=== PATIENT | male | born 1980 | race Hispanic/Latino ===

== ENCOUNTER 2017-12-19 22:35 | Emergency (ER) | payer BC ==
[2017-12-19] MEDS ORDERED: ASPIRIN 325 MG TABLET ONE (22:49)
[2017-12-19 22:59] LABS: BASOPHILS % (AUTO) 0.5 % (0.0-5.0); EOSINOPHILS % (AUTO) 1.2 % (0.0-8.0); HEMATOCRIT 46.3 % (42-54); LYMPHOCYTES % (AUTO) 15.6 % (21.0-51.0); MEAN CORPUSCULAR HEMOGLOBIN 31.1 pg (27.0-33.0); MEAN CORPUSCULAR HGB CONC 35.1 g/dL (32.0-36.0); MEAN CORPUSCULAR VOLUME 88.5 fL (79-99); MONOCYTES % (AUTO) 7.1 % (3.0-13.0); NEUTROPHILS % (AUTO) 75.6 % (40.0-77.0); PLATELET COUNT (AUTO) 230 K/uL (130-400); RED BLOOD CELL COUNT(AUTO) 5.24 MIL/uL (4.50-6.20); RED CELL DISTRIBUTION WIDTH 12.2 % (11.0-15.5)
[2017-12-19 23:21] LABS: CREATININE 1.1 mg/dL (0.5-1.5); POTASSIUM 3.5 mmol/L (3.5-5.1)
[2017-12-19 23:22] LABS: INR 0.98 (0.85-1.15); PARTIAL THROMBOPLASTIN TIME 26.8 SEC (26.3-35.5); PROTHROMBIN TIME 10.3 SEC (9.6-11.6)
[2017-12-19] MEDS ORDERED: SODIUM CHLORIDE 0.9% 1000ML 1,000 ML IV ONE (23:33)
[2017-12-19 23:34] LABS: BILIRUBIN,TOTAL 0.3 mg/dL (0.2-1.0); TOTAL PROTEIN, SERUM 8.1 g/dL (6.0-8.3)
[2017-12-19] MEDS ORDERED: FAMOTIDINE/PF 20 MG/2 ML VIAL IV ONE (23:34)
[2017-12-19] MEDS ORDERED: ACETAMINOPHEN 325 MG TAB ONE (23:34)
[2017-12-19] MEDS ORDERED: NITROGLYCERIN 1GM/1 INCH PACKET TD ONE (23:34)
[2017-12-19 23:40] LABS: APPEARANCE,URINE Clear (CLEAR); BILIRUBIN,URINE Negative (NEGATIVE); COLOR,URINE Yellow (YELLOW); GLUCOSE, URINE (UA) Negative (NEGATIVE); KETONES,URINE Negative (NEGATIVE); LEUKOCYTE ESTERASE ,URINE Negative (NEGATIVE); NITRATE,URINE Negative (NEGATIVE); OCCULT BLOOD,URINE Negative (NEGATIVE); PROTEIN,URINE Negative (NEGATIVE); UROBILINOGEN,URINE 0.2 mg/dL (0.2-1.0)
[2017-12-20 00:05] LABS: AMPHET/METH SCREEN,URINE NEGATIVE (NEGATIVE); BARBITURATE SCREEN, URINE NEGATIVE (NEGATIVE); BENZODIAZEPINES SCREEN,URINE NEGATIVE (NEGATIVE); CANNABINOID SCREEN,URINE NEGATIVE (NEGATIVE); COCAINE SCREEN,URINE NEGATIVE (NEGATIVE); OPIATE SCREEN,URINE NEGATIVE (NEGATIVE); PHENCYCLIDINE SCREEN,URINE NEGATIVE (NEGATIVE)
[2017-12-20] MEDS ORDERED: LABETALOL HCL 5 MG/ML 20ML VIAL IV ONE (00:22)
[2017-12-20] MEDS ORDERED: SUCRALFATE 1 GM TABLET ONE (00:50)
[2017-12-20] MEDS ORDERED: MAG HYDROX/AL HYDROX/SIMETH ES 30 ML SUSP UDCUP ONE (02:09)
[2017-12-20] MEDS ORDERED: LIDOCAINE HCL 2% VISCOUS 15 ML UDCUP ONE (02:09)
== END 2017-12-20 05:16 | disposition home or self-care (01) ==
LOC: EDH 22:35
DX: K29.70 Gastritis, unspecified, without bleeding (principal); R00.2 Palpitations; T44.995A Adverse effect of other drug primarily affecting the autonomic nervous system, initial encounter; R07.89 Other chest pain; Z72.0 Tobacco use; Y92.89 Other specified places as the place of occurrence of the external cause
CPT/HCPCS: 36415; 71045; 80053; 80305; 81003; 82550; 82553; 83874; 84484 ×2; 85025; 85610; 85730; 93005 ×2; 94761; 96361; 96374; 96375; 99285; J3490 ×2; J7030

== ENCOUNTER 2018-04-22 01:09 | Emergency (ER) | payer BC ==
[2018-04-22 01:28] LABS: BASOPHILS % (AUTO) 0.5 % (0.0-5.0); EOSINOPHILS % (AUTO) 3.1 % (0.0-8.0); HEMATOCRIT 45.2 % (42-54); LYMPHOCYTES % (AUTO) 28.1 % (21.0-51.0); MEAN CORPUSCULAR HEMOGLOBIN 30.8 pg (27.0-33.0); MONOCYTES % (AUTO) 6.8 % (3.0-13.0); NEUTROPHILS % (AUTO) 61.5 % (40.0-77.0); NUCLEATED RED BLOOD CELLS 0.1 % (0.0-0.19); PLATELET COUNT (AUTO) 212 K/uL (130-400); RED BLOOD CELL COUNT(AUTO) 5.13 MIL/uL (4.50-6.20); RED CELL DISTRIBUTION WIDTH 12.6 % (11.0-15.5); WHITE BLOOD COUNT (AUTO) 8.8 K/uL (4.8-10.8)
[2018-04-22 01:35] LABS: POTASSIUM 3.6 mmol/L (3.5-5.1)
[2018-04-22] MEDS ORDERED: LIDOCAINE HCL 2% VISCOUS 15 ML UDCUP ONE (01:38)
[2018-04-22] MEDS ORDERED: MAGNESIUM HYDROXIDE 30 ML/UDCUP ONE (01:39)
[2018-04-22] MEDS ORDERED: ASPIRIN 325 MG TABLET ONE (01:39)
[2018-04-22 01:41] LABS: ALBUMIN 3.8 g/dL (3.5-5.0); BILIRUBIN,TOTAL 0.3 mg/dL (0.2-1.0); TOTAL PROTEIN, SERUM 7.7 g/dL (6.0-8.3)
[2018-04-22 01:50] LABS: AMPHET/METH SCREEN,URINE NEGATIVE (NEGATIVE); BARBITURATE SCREEN, URINE NEGATIVE (NEGATIVE); BENZODIAZEPINES SCREEN,URINE NEGATIVE (NEGATIVE); CANNABINOID SCREEN,URINE NEGATIVE (NEGATIVE); COCAINE SCREEN,URINE NEGATIVE (NEGATIVE); OPIATE SCREEN,URINE NEGATIVE (NEGATIVE); PHENCYCLIDINE SCREEN,URINE NEGATIVE (NEGATIVE)
[2018-04-22 02:08] LABS: B-TYPE NATRIURETIC PEPTIDE 18 pg/mL (0-100)
== END 2018-04-22 02:54 | disposition home or self-care (01) ==
LOC: EDH 01:09
DX: R07.89 Other chest pain (principal); R11.0 Nausea
CPT/HCPCS: 36415; 71045; 80053; 80305; 82550; 83880; 84484; 85025; 93005; 94761

== ENCOUNTER 2023-03-01 20:49 | Emergency (ER) | payer BC, OTHER ==
[~2023-03-01] VITALS: Ht 160 cm; Wt 82.1 kg
[2023-03-01] MEDS ORDERED: KETOROLAC 30MG VIAL (30MG/ML) IVP ONE (22:00)
[2023-03-01] MEDS ORDERED: ORPHENADRINE CITRATE 30 MG/ML ML IVP ONE (22:00)
[2023-03-01 22:14] LABS: BASOPHILS % (AUTO) 0.9 % (0.0-5.0); EOSINOPHILS % (AUTO) 3.6 % (0.0-8.0); HEMATOCRIT 47.1 % (42-54); MEAN CORPUSCULAR HEMOGLOBIN 29.7 pg (27.0-33.0); MEAN CORPUSCULAR HGB CONC 34.8 g/dL (32.0-36.0); MEAN CORPUSCULAR VOLUME 85.2 fL (79-99); MONOCYTES % (AUTO) 6.8 % (3.0-13.0); NEUTROPHILS % (AUTO) 58.3 % (40.0-77.0); PLATELET COUNT (AUTO) 257 K/uL (130-400); RED BLOOD CELL COUNT(AUTO) 5.53 MIL/uL (4.50-6.20); WHITE BLOOD COUNT (AUTO) 8.5 K/uL (4.8-10.8)
[2023-03-01 22:16] LABS: APPEARANCE,URINE CLEAR (CLEAR); BILIRUBIN,URINE NEGATIVE (NEGATIVE); COLOR,URINE COLORLESS (YELLOW); GLUCOSE, URINE (UA) NEGATIVE (NEGATIVE); KETONES,URINE NEGATIVE (NEGATIVE); LEUKOCYTE ESTERASE ,URINE NEGATIVE Leu/uL (NEGATIVE); NITRATE,URINE NEGATIVE (NEGATIVE); OCCULT BLOOD,URINE NEGATIVE (NEGATIVE); PH,URINE 6.5 (5.0-8.0); PROTEIN,URINE NEGATIVE (NEGATIVE); UROBILINOGEN,URINE 0.2 mg/dL (0.2-1.0)
[2023-03-01 22:24] LABS: POTASSIUM 3.6 mmol/L (3.5-5.1)
[2023-03-01 22:28] LABS: ALBUMIN 4.2 g/dL (3.5-5.0); MAGNESIUM 2.2 mg/dL (1.80-2.40); TOTAL PROTEIN, SERUM 7.8 g/dL (6.0-8.3)
[2023-03-01] MEDS ORDERED: IOHEXOL 350 MG/ML 100ML INFUS..BTL IV ONE (22:38)
[2023-03-01] MEDS ORDERED: IBUP-2071 PO (23:27)
[2023-03-01] MEDS ORDERED: POLY17PO4 PO (23:27)
[2023-03-01] MEDS ORDERED: DOCU-116 PO (23:27)
[2023-03-02 00:20] VITALS: BP 126/89
== END 2023-03-02 00:25 | disposition home or self-care (01) ==
LOC: EDH 20:49
DX: K59.00 Constipation, unspecified (principal); M54.50 Low back pain, unspecified; R07.81 Pleurodynia
CPT/HCPCS: 99285; 74177; 96374; 96375; 83735; 80053; 85025; 81003; 36415; J1885; Q9967

== ENCOUNTER 2023-04-04 19:43 | Emergency (ER) | payer OTHER ==
[~2023-04-04] VITALS: Ht 160 cm; Wt 81.6 kg
[~2023-04-04 19:43] MED LIST: DOCU-116 PO; IBUP-2071 PO; POLY17PO4 PO
[2023-04-04 20:30] VITALS: BP 164/95
[2023-04-04] MEDS: KETOROLAC 60 MG VIAL (30MG/ML) IM ONE ×2 (21:45→22:02)
[2023-04-04] MEDS: DIAZEPAM 5 MG/ML 2 ML SYG IM ONE ×2 (21:45→22:02)
[2023-04-04] MEDS ORDERED: MELO-106 PO (21:54)
== END 2023-04-04 22:07 | disposition left against medical advice (07) ==
LOC: EDH 19:43
DX: M54.12 Radiculopathy, cervical region (principal); M62.830 Muscle spasm of back
CPT/HCPCS: 99283; J3360; J1885

== ENCOUNTER 2023-10-08 15:42 | Emergency (ER) | payer OTHER ==
[~2023-10-08] VITALS: Ht 160 cm; Wt 74.8 kg
[~2023-10-08 15:42] MED LIST changes: +MELO-106 PO
[2023-10-08 16:19] LABS: BASOPHILS # (AUTO) 0.04 K/uL (0.00-0.20); BASOPHILS % (AUTO) 0.6 % (0.0-5.0); EOSINOPHILS # (AUTO) 0.16 K/uL (0.00-0.70); EOSINOPHILS % (AUTO) 2.3 % (0.0-8.0); HEMATOCRIT 45.7 % (42-54); IMMATURE GRANULOCYTE ABSOLUTE 0.01 K/uL (0-1); LYMPHOCYTES # (AUTO) 1.8 K/uL (1.0-4.8); LYMPHOCYTES % (AUTO) 25.7 % (21.0-51.0); MEAN CORPUSCULAR HEMOGLOBIN 30.4 pg (27.0-33.0); MEAN CORPUSCULAR HGB CONC 34.8 g/dL (32.0-36.0); MEAN CORPUSCULAR VOLUME 87.4 fL (79-99); MONOCYTES # (AUTO) 0.5 K/uL (0.1-1.0); MONOCYTES % (AUTO) 7.9 % (3.0-13.0); NEUTROPHILS # (AUTO) 4.3 K/uL (1.8-7.7); NEUTROPHILS % (AUTO) 63.4 % (40.0-77.0); PLATELET COUNT (AUTO) 231 K/uL (130-400); RED BLOOD CELL COUNT(AUTO) 5.23 MIL/uL (4.50-6.20); RED CELL DISTRIBUTION WIDTH 12.1 % (11.0-15.5); WHITE BLOOD COUNT (AUTO) 6.8 K/uL (4.8-10.8)
[2023-10-08 16:29] LABS: CARBON DIOXIDE 29 mmol/L (21-32); CHLORIDE 107 mmol/L (101-111); CREATININE 0.9 mg/dL (0.5-1.5); GLOMERULAR FILTR. RATE CALC 109 mL/min (>90); GLUCOSE,RANDOM 99 mg/dL (70-105); POTASSIUM 3.6 mmol/L (3.5-5.1); SODIUM SERUM 143 mmol/L (136-145); UREA NITROGEN, BLOOD 10 mg/dL (7-18)
[2023-10-08 16:36] LABS: ALANINE AMINOTRANSFERASE 37 U/L (12-78); ALBUMIN 3.7 g/dL (3.5-5.0); ASPARTATE AMINOTRANSFERASE 15 U/L (10-37); BILIRUBIN,TOTAL 0.5 mg/dL (0.2-1.0); CREATINE KINASE, TOTAL 79 U/L (21-232); TOTAL PROTEIN, SERUM 7.5 g/dL (6.0-8.3)
[2023-10-08 21:48] VITALS: BP 132/65; PULSE 68; RESP 18; O2SAT 97
[2023-10-08] MEDS ORDERED: ASPI-1005 PO (21:49)
== END 2023-10-08 22:17 | disposition home or self-care (01) ==
LOC: EDH 15:42
DX: G45.9 Transient cerebral ischemic attack, unspecified (principal); R20.0 Anesthesia of skin; Z79.899 Other long term (current) drug therapy; Z98.890 Other specified postprocedural states
CPT/HCPCS: 36415; 70450; 71045; 80053; 82550; 84484; 85025; 93005

== ENCOUNTER 2023-11-20 17:15 | Emergency (ER) | payer OTHER ==
[~2023-11-20] VITALS: Ht 160 cm; Wt 77.1 kg
[~2023-11-20 17:15] MED LIST changes: +ASPI-1005 PO
[2023-11-20 18:30] LABS: BASOPHILS # (AUTO) 0.05 K/uL (0.00-0.20); BASOPHILS % (AUTO) 0.7 % (0.0-5.0); EOSINOPHILS # (AUTO) 0.26 K/uL (0.00-0.70); EOSINOPHILS % (AUTO) 3.4 % (0.0-8.0); HEMATOCRIT 45.5 % (42-54); IMMATURE GRANULOCYTE ABSOLUTE 0.02 K/uL (0-1); LYMPHOCYTES # (AUTO) 1.9 K/uL (1.0-4.8); LYMPHOCYTES % (AUTO) 25.3 % (21.0-51.0); MEAN CORPUSCULAR HGB CONC 34.5 g/dL (32.0-36.0); MEAN CORPUSCULAR VOLUME 86.8 fL (79-99); MONOCYTES # (AUTO) 0.5 K/uL (0.1-1.0); MONOCYTES % (AUTO) 6.2 % (3.0-13.0); NEUTROPHILS # (AUTO) 4.9 K/uL (1.8-7.7); NEUTROPHILS % (AUTO) 64.1 % (40.0-77.0); PLATELET COUNT (AUTO) 239 K/uL (130-400); RED BLOOD CELL COUNT(AUTO) 5.24 MIL/uL (4.50-6.20); RED CELL DISTRIBUTION WIDTH 11.9 % (11.0-15.5); WHITE BLOOD COUNT (AUTO) 7.6 K/uL (4.8-10.8)
[2023-11-20 18:34] LABS: APPEARANCE,URINE CLEAR (CLEAR); BILIRUBIN,URINE NEGATIVE (NEGATIVE); COLOR,URINE COLORLESS (YELLOW); GLUCOSE, URINE (UA) NEGATIVE (NEGATIVE); KETONES,URINE NEGATIVE (NEGATIVE); LEUKOCYTE ESTERASE ,URINE NEGATIVE Leu/uL (NEGATIVE); NITRATE,URINE NEGATIVE (NEGATIVE); OCCULT BLOOD,URINE NEGATIVE (NEGATIVE); PROTEIN,URINE NEGATIVE (NEGATIVE); UROBILINOGEN,URINE 0.2 mg/dL (0.2-1.0)
[2023-11-20 18:41] LABS: POTASSIUM 3.7 mmol/L (3.5-5.1)
[2023-11-20 18:48] LABS: ADD UA MICROSCOPIC NO
[2023-11-20 18:50] LABS: ALBUMIN 3.8 g/dL (3.5-5.0); BILIRUBIN,TOTAL 0.4 mg/dL (0.2-1.0); TOTAL PROTEIN, SERUM 7.6 g/dL (6.0-8.3)
[2023-11-20 19:04] VITALS: BP 127/63; PULSE 80; RESP 18; O2SAT 97
[2023-11-20] MEDS ORDERED: SUCR1TAB28 PO (19:24)
[2023-11-20] MEDS ORDERED: OMEP40CA21 PO (19:24)
[2023-11-20] MEDS ORDERED: MAG/ALUM/SIMETH 30 ML UDCUP PO ONE (19:30)
== END 2023-11-20 19:37 | disposition home or self-care (01) ==
LOC: EDH 17:15
DX: K29.00 Acute gastritis without bleeding (principal); E86.0 Dehydration; Z79.82 Long term (current) use of aspirin; Z79.899 Other long term (current) drug therapy; Z98.890 Other specified postprocedural states
CPT/HCPCS: 36415; 74018; 80053; 81003; 83690; 84484; 85025; 93005

== ENCOUNTER 2024-07-09 21:35 | Emergency (ER) | payer BC ==
[~2024-07-09] VITALS: Ht 160 cm; Wt 78.0 kg
[~2024-07-09 21:35] MED LIST changes: +OMEP40CA21 PO; +SUCR1TAB28 PO
[2024-07-09 21:36] VITALS: BP 142/91; PULSE 64; RESP 20; TEMP 97.9
[2024-07-09] MEDS: ketOROlac 30MG VIAL (30MG/ML) IM ONE (22:43)
[2024-07-09] MEDS: CYCLOBENZAPRINE HCL 10 MG TABLET PO ONE (22:43)
== END 2024-07-10 00:07 | disposition home or self-care (01) ==
LOC: EDH 21:35
DX: G56.21 Lesion of ulnar nerve, right upper limb (principal); E78.00 Pure hypercholesterolemia, unspecified; K21.9 Gastro-esophageal reflux disease without esophagitis; Z79.82 Long term (current) use of aspirin; Z79.899 Other long term (current) drug therapy
CPT/HCPCS: 99285; 72125; 72128; 96372; J1885

== ENCOUNTER 2024-08-04 18:17 | Emergency (ER) | payer BC ==
[~2024-08-04] VITALS: Ht 160 cm; Wt 77.1 kg
[2024-08-04 19:08] LABS: BASOPHILS # (AUTO) 0.07 K/uL (0.00-0.20); EOSINOPHILS # (AUTO) 0.14 K/uL (0.00-0.70); HEMATOCRIT 44.8 % (42-54); IMMATURE GRANULOCYTE ABSOLUTE 0.02 K/uL (0-1); LYMPHOCYTES # (AUTO) 2.3 K/uL (1.0-4.8); LYMPHOCYTES % (AUTO) 33.3 % (21.0-51.0); MEAN CORPUSCULAR HEMOGLOBIN 30.2 pg (27.0-33.0); MEAN CORPUSCULAR HGB CONC 35.3 g/dL (32.0-36.0); MEAN CORPUSCULAR VOLUME 85.7 fL (79-99); MONOCYTES # (AUTO) 0.5 K/uL (0.1-1.0); MONOCYTES % (AUTO) 7.7 % (3.0-13.0); NEUTROPHILS # (AUTO) 3.9 K/uL (1.8-7.7); NEUTROPHILS % (AUTO) 55.7 % (40.0-77.0); PLATELET COUNT (AUTO) 221 K/uL (130-400); RED BLOOD CELL COUNT(AUTO) 5.23 MIL/uL (4.50-6.20); RED CELL DISTRIBUTION WIDTH 12.2 % (11.0-15.5)
[2024-08-04 19:15] LABS: CREATININE 0.9 mg/dL (0.5-1.3); POTASSIUM 3.4 mmol/L (3.5-5.1)
[2024-08-04 19:17] LABS: SARS-CoV-2, RNA, NAAT NEGATIVE SARS CoV-2 (NEGATIVE)
[2024-08-04 19:22] VITALS: BP 122/67; PULSE 76; RESP 16; TEMP 98.1; O2SAT 97
[2024-08-04 19:26] LABS: INFLUENZA TYPE A Negative For Type A (NEGATIVE); INFLUENZA TYPE B Negative For Type B (NEGATIVE)
[2024-08-04] MEDS: PoTASSium BIcarbonate/CIT AC 25 MEQ TABLET.EFF PO ONE (19:29)
== END 2024-08-04 20:16 | disposition home or self-care (01) ==
LOC: EDH 18:17
DX: R61 Generalized hyperhidrosis (principal); E78.00 Pure hypercholesterolemia, unspecified; K21.9 Gastro-esophageal reflux disease without esophagitis; Z79.1 Long term (current) use of non-steroidal anti-inflammatories (NSAID); Z79.82 Long term (current) use of aspirin; Z79.899 Other long term (current) drug therapy; Z20.822 Contact with and (suspected) exposure to COVID-19
CPT/HCPCS: 36415; 80048; 84484; 85025; 87635; 87804; 93005

== ENCOUNTER → 2025-03-14 | Outpatient (CLI) | payer OTHER ==
--- NOTE | 2025-03-14 15:08 | HMCIMG ---
CT calcium scoring Clinical Information: SCREENING Comparison: None CT Dose Index (CTDI): 13.30 mGy Dose Length Product (DLP): 186.18 total mGy-cm Findings: Calcium score 5.7. Mild calcification. The CT scan is not a complete chest CT. Covered portion is reviewed for incidental findings. No incidental findings seen. IMPRESSION: Calcium score as above. Calcium score reference stable: 0: No identifiable calcification 1- 10: Minimal identifiable calcification 11-100: Mild calcification 101- 400: Moderate calcification 401 and above: Significant calcification Automated exposure control and adequate statistical iterative reconstructions were utilized as dose reduction techniques.
== END | disposition home or self-care (01) ==
LOC: RAH 14:26
PROVIDERS: ATTEND Internal Medicine
DX: Z13.6 Encounter for screening for cardiovascular disorders (principal)
CPT/HCPCS: 75571

== ENCOUNTER 2025-06-23 13:47 | Emergency (ER) | payer BC, OTHER ==
[~2025-06-23] VITALS: Ht 160 cm; Wt 80.3 kg
--- NOTE | 2025-06-23 15:14 | ERN ---
ED Note History of Present Illness Stated Complaint: TINGLING TO LIPS AND TONGUE Chief Complaint: Other Problems Time Seen by MD: 13:54 Dictation: 44-YEAR-OLD MALE PRESENTS TO ER COMPLAINTS OF TINGLING AROUND THE MOUTH. PATIENT STATES HE THINKS HIS THE DOXYCYCLINE HE HAS BEEN TAKING FOR AN INFECTION OF HIS STOMACH. PATIENT DENIES NUMBNESS CHEST PAIN OR SHORTNESS OF BREATH PATIENT ALSO STATES HE HAS HISTORY OF HTN BUT DOES NOT TAKE MEDICATIONS. Allergies: Coded Allergies: No Known Drug Allergies (Unverified Allergy, Unknown, 03/01/23) Home Meds Active Scripts Omeprazole (Omeprazole) 40 Mg Capsule.dr, 40 MG PO DAILY, #30 CAP Prov:DEBBIE DUARTE BOILERMAKER 11/20/23 Sucralfate (Carafate) 1 Gram Tablet, 1 GM PO ACHS for 10 Days, #40 TAB Prov:DEBBIE DUARTE BOILERMAKER 11/20/23 Aspirin (ASPIRIN 81MG CHEW TAB) 81 Mg Tab.chew, 81 MG PO DAILY, #30 TAB.CHEW Prov:ЕЛЕНА ALVA MD 10/08/23 Meloxicam (Meloxicam) 7.5 Mg Tablet, 7.5 MG PO DAILY, #30 TAB 2 Refills Prov:JOEL JACOBO Sr., MD 04/04/23 Ibuprofen (Ibuprofen) 800 Mg Tablet, 800 MG PO Q8H PRN for PAIN, #30 TAB 0 Refills Prov:DOMENICO MONZON MD 03/01/23 Polyethylene Glycol 3350 (Miralax) 17 Gm Powd.pack, 1 PKT PO DAILY for constipation, #15 PT 0 Refills Prov:DOMENICO MONZON MD 03/01/23 Docusate Sodium (Colace) 100 Mg Capsule, 100 MG PO TID for constipation, #30 CAP 0 Refills Prov:DOMENICO MONZON MD 03/01/23 Past Medical History Past Medical History: GERD, High Cholesterol Additional Past Medical Hx: POLYCYTHEMIA Surgical History: None Social History: Negative, Lives with family Review of System Dictation CONSTITUTIONAL: NEGATIVE FOR FEVER,CHILLS, AND WEIGHT LOSS EYES: NEGATIVE FOR INJURY, PAIN,REDNESS, AND DISCHARGE ENT: NEGATIVE FOR INJURY,PAIN OR SWELLING CARDIOVASCULAR: NEGATIVE FOR CHEST PAIN, PALPITATIONS, AND EDEMA RESPIRATORY: NEGATIVE FOR SHORTNESS OF BREATH, COUGH, WHEEZING, AND PLEURITIC CHEST PAIN ABDOMEN/GI: NEGATIVE FOR ABDOMINAL PAIN, NAUSEA, VOMITING, DIARRHEA, AND CONSTIPATION BACK: NEGATIVE FOR INJURY AND PAIN : NEGATIVE FOR INJURY, BLEEDING AND DISCHARGE MS/EXTREMITY: NEGATIVE FOR INJURY AND DEFORMITY SKIN: NEGATIVE FOR RASH, AND DISCOLORATION NEURO: NEGATIVE FOR HEADACHE, WEAKNESS, NUMBNESS, TINGLING, AND SEIZURE PSYCH: NEGATIVE FOR SUICIDE IDEATION, HOMICIDAL IDEATION, AND HALLUCINATIONS ALLERGY/IMMUNOLOGY: NEGATIVE FOR HIVES, RASH, AND ALLERGIES ALL SYSTEMS NEGATIVE, EXCEPT NOTED ABOVE. Initial Vital Sign VS Vital Signs Date Time Temp Pulse Resp B/P (MAP) Pulse Ox O2 Delivery O2 Flow Rate FiO2 06/23/25 13:48 97.5 96 16 147/90 96 Room Air 0 06/23/25 14:30 21 Physical Exam Dictation GENERAL: AWAKE, ALERT, NAD HEAD/FACE: NORMOCEPHALIC, ATRAUMATIC EYES: PERRL, EOMI, VISION AT BASELINE ENT: ORAL CAVITY CLEAR, TMS CLEAR, NO SIGNS OF INFECTION NECK: TRACHEA MIDLINE, SUPPLE, NO NUCHAL RIGIDITY CARDIOVASCULAR: RRR, NORMAL S1/S2, NO MRGS, NO JVD RESPIRATORY: CTAB, NO RESPIRATORY DISTRESS, NO RALES OR WHEEZES ABDOMEN: SOFT, NON-TENDER, NON-DISTENDED, NORMAL BOWEL SOUNDS, NO GUARDING OR REBOUND. SKIN: WARM, DRY, NORMAL TURGOR, NO RASH MS/EXTREMITY: PULSES EQUAL, NO CYANOSIS, NEUROVASCULAR INTACT, FROM NEURO: COAX4, GCS 15, STRENGTH 5/5, CN 2-12 INTACT, NORMAL CEREBELLAR EXAM, NORMAL GAIT, PSYCH: NORMAL BEHAVIOR, MOOD, AND AFFECT NORMAL ED Course ED Course Orders Procedure Category Date Status Time 12 Lead Ekg Tracing- EKG 06/23/25 Resulted Technical 14:43 Hydroxyzine 50mg Vial PHA 06/23/25 In Process (Atarax 50mg Inj) 15:00 Current Medications Medications (Trade) Dose Ordered Sig/Kristi Route PRN Reason Start Time Stop Time Status Last Admin Dose Admin Hydroxyzine HCl (ATArax 50MG INJ) 25 mg ONCE IM 06/23/25 15:00 07/23/25 14:59 06/23/25 15:39 Vital Signs Date Time Temp Pulse Resp B/P (MAP) Pulse Ox O2 Delivery O2 Flow Rate FiO2 06/23/25 16:00 97.5 81 18 135/77 96 Room Air* 0 21 06/23/25 14:30 84 18 151/95 98 Room Air* 0 21 06/23/25 13:48 97.5 96 16 147/90 96 Room Air 0 Medical Decision Making MDM MDM: DIFFERENTIAL DIAGNOSIS: ALLERGIC REACTION, UNCONTROLLED HTN, ANXIETY RATIONALE: TESTS CONSIDERED AND ORDERED SECONDARY TO SHARED DECISION MAKING INCLUDE: LABS, ECG AND RADIOLOGY PREVIOUS OUTSIDE RECORDS REVIEWED: OLD ER VISITS. RISK OF COMPLICATION AND/OR MORBIDITY OR MORTALITY OF PATIENT MANAGEMENT: NONE MEDICATIONS-PER MEDICATION RECONCILIATION NEED FOR HOSPITALIZATION: PATIENT DOES NOT MEET CRITERIA FOR HOSPITALIZATION. NEED FOR EMERGENCY MAJOR/MINOR SURGERY: NO THERE ARE NO SOCIAL CONCERNS WITH THIS PATIENT. PRESCRIPTION DRUG MANAGEMENT PRESCRIPTIONS WILL INCLUDE SYMPTOMATIC CARE PATIENT'S PRIOR EXTERNAL MEDICAL RECORDS FROM OTHER ER VISITS WERE REVIEWED BY ME INDICATED. PRIOR TESTING AND RESULTS FROM PREVIOUS VISITS WERE REVIEWED. PRIOR TESTS WERE TAKEN INTO ACCOUNT WITH MEDICAL DECISION MAKING AND RESOURCE U TILIZATION, INDEPENDENT HISTORIAN/HISTORIANS WERE USED TO OBTAIN COMPLETE MEDICAL HISTORY. I INDEPENDENTLY INTERPRETED THE TEST THAT WERE PERFORMED, RESULTS WERE REVIEWED BY ME AND CONSIDERED FINDINGS ON RADIOLOGY IF ORDERED. PATIENT'S SYMPTOMS IMPROVED. PATIENT ADVISED TO GO FOLLOW BACK UP WITH PCP LET HIM KNOW DOXYCYCLINE IS CAUSING HIM SIDE EFFECTS FOR NOW STOP IT. PATIENT VSS, NAD, NONTOXIC, STABLE FOR DISCHARGE. PT GIVEN DISCHARGE INSTRUCTIONS IN [place] TERMS AND UNDERSTOOD, ALL QUESTIONS ANSWERED. PT WILL FOLLOW UP WITH PCP AND RETURN TO THE ER IF WORSE. DX & DISP Disposition: Discharge Departure Impression: Primary Impression: Tingling sensation in face Additional Impression: High blood pressure Condition: Stable Additional Instructions: FOLLOW-UP WITH YOUR PCP IN 24-72 HOURS AND IN THE EVENT IF SYMPTOMS WORSEN OR AN EMERGENCY OVERNIGHT REPORT TO THE ED IMMEDIATELY Referrals: TASHA CURIEL MD (PCP) MAUREEN OLIVEROS NP Jun 23, 2025 15:14
--- NOTE | 2025-06-23 15:21 | EKG ---
[facility] Test Date: 2025-06-23 Test Time: 14:47:55 Pat Name: DANA BRANTLEY Department: ED Room: Gender: M Crusher Tender: [id number] : 1980 Requested By: MAUREEN OLIVEROS Order Number: [id number] Reading MD: Reggie Barber Measurements Intervals [place] Rate: 72 P: 52 LA: 154 QRS: -18 QRSD: 90 T: 7 QT: 367 QTc: 402 Interpretive Statements Sinus rhythm ST elev, probable normal early repol pattern Compared to ECG 08/04/2024 19:20:45 ST (T wave) deviation now present Myocardial infarct finding no longer present Electronically Signed On 06-23-2025 15:26:13 CDT by Reggie Barber Please click the below link to view image of tracing.
[2025-06-23 16:50] VITALS: BP 129/77; PULSE 68; RESP 18; TEMP 97.5; O2SAT 97
== END 2025-06-23 16:56 | disposition home or self-care (01) ==
LOC: EDH 13:47
DX: R20.2 Paresthesia of skin (principal); I10 Essential (primary) hypertension; E78.00 Pure hypercholesterolemia, unspecified; K21.9 Gastro-esophageal reflux disease without esophagitis; Z79.899 Other long term (current) drug therapy; Z79.1 Long term (current) use of non-steroidal anti-inflammatories (NSAID); Z79.82 Long term (current) use of aspirin
CPT/HCPCS: 99284; 96372; 93005; J3410